=== PATIENT | male | born 1950 | race Caucasian/White ===

== ENCOUNTER 2021-08-26 12:46 | Inpatient (IN) | payer OTHER, SELFPAY ==
[~2021-08-26] VITALS: Ht 175.3 cm; Wt 62.6 kg
[~2021-08-26 12:46] MED LIST: DEXAMETHASONE SOD PHOSPHATE 4 MG/ML VIAL ONE; METOCLOPRAMIDE HCL 10 MG/2 ML VIAL ONE; MIDAZOLAM HCL 5 MG/ML VIAL (VERSED) IV ONE; ONDANSETRON HCL 4 MG/2 ML VIAL ONE; PROPOFOL 200MG/ 20ML VIAL (DIPRIVAN) IV ONE; SEVOFLURANE 15 MIN GAS INH ONE; SUCCINYLCHOLINE CHLORIDE 20 MG/ML(QUELICIN) ONE; fentaNYL CITRATE 250 MCG/5 ML AMP ONE
[2021-08-26] MEDS ORDERED: METO-442 PO (16:40)
[2021-08-26 17:54] LABS: BASOPHILS % (AUTO) 0.6 % (0.0-2.0); EOSINOPHILS # (AUTO) 0.1 K/uL (0.0-0.4); EOSINOPHILS % (AUTO) 0.9 % (0.0-4.0); HEMATOCRIT 45.1 % (36-54); HEMOGLOBIN 15.3 g/dL (14.0-18.0); LYMPHOCYTES # (AUTO) 1.9 K/uL (1.0-5.5); LYMPHOCYTES % (AUTO) 21.3 % (20.5-51.5); MEAN CORPUSCULAR HEMOGLOBIN 33 pg (27-31); MEAN CORPUSCULAR HGB CONC 34 % (32-36); MEAN CORPUSCULAR VOLUME 96 fL (79.0-98.0); MONOCYTES # (AUTO) 0.7 K/uL (0.0-1.0); MONOCYTES % (AUTO) 8.5 % (1.7-9.3); NEUTROPHILS % (AUTO) 68.7 % (40.0-70.0); PLATELET COUNT (AUTO) 195 K/uL (130-430); RED CELL DISTRIBUTION WIDTH 13.3 % (9.0-15.0); WHITE BLOOD COUNT (AUTO) 8.7 K/uL (4.8-10.8)
[2021-08-26 18:03] LABS: CREATININE 1.04 mg/dL (0.55-1.30); POTASSIUM 4.9 mmol/L (3.5-5.1)
[2021-08-26 18:09] LABS: ALBUMIN 4.3 g/dL (3.4-4.8); TOTAL BILIRUBIN 0.3 mg/dL (0.0-1.0)
[2021-08-26 18:14] VITALS: BP_SYST 145
[2021-08-26] MEDS ORDERED: HYDROmorphone 2 MG/ML VIAL ONE (18:35)
[2021-08-26] MEDS: HYDROmorphone 2 MG/ML VIAL IVP PRN ×3 (18:39→23:34)
[2021-08-26] MEDS: LR 1,000 ML IV SCH (18:48)
[2021-08-26 19:00] VITALS: BP_SYST 159
[2021-08-26 19:16] LABS: INR 1.1 (0.80-1.20); PROTHROMBIN TIME 11.1 SECS (9.5-12.5)
[2021-08-26 20:00] VITALS: BP_SYST 159
[2021-08-27 00:21] LABS: BILIRUBIN,URINE 2+ (NEGATIVE); BLOOD, URINE NEGATIVE (NEGATIVE); CLARITY/URINE CLEAR (CLEAR); COLOR,URINE YELLOW (YELLOW); GLUCOSE,URINE NEGATIVE (NEGATIVE); KETONES,URINE 2+ (NEGATIVE); LEUKOCYTE ESTERASE ,URINE NEGATIVE (NEGATIVE); NITRITE, URINE NEGATIVE (NEGATIVE); PH,URINE 5.5 (5.0-8.0); PROTEIN URINE NEGATIVE (NEGATIVE); UROBILINOGEN,URINE 0.2 (0.2-1.0)
[2021-08-27 00:24] VITALS: BP_SYST 138
[2021-08-27] MEDS: HYDROmorphone 2 MG/ML VIAL IVP PRN ×4 (01:46→07:44)
[2021-08-27 05:25] LABS: EOSINOPHILS # (AUTO) 0.2 K/uL (0.0-0.4); EOSINOPHILS % (AUTO) 2.2 % (0.0-4.0); HEMOGLOBIN 15.1 g/dL (14.0-18.0); LYMPHOCYTES # (AUTO) 1.8 K/uL (1.0-5.5); MONOCYTES # (AUTO) 0.7 K/uL (0.0-1.0); NEUTROPHILS # (AUTO) 4.8 K/uL (1.8-7.7); PLATELET COUNT (AUTO) 193 K/uL (130-430); RED CELL DISTRIBUTION WIDTH 13.2 % (9.0-15.0); WHITE BLOOD COUNT (AUTO) 7.6 K/uL (4.8-10.8)
[2021-08-27 05:33] LABS: INR 1.1 (0.80-1.20); PROTHROMBIN TIME 11.2 SECS (9.5-12.5)
[2021-08-27 05:34] LABS: BASOPHILS % (AUTO) 0.6 % (0.0-2.0); LYMPHOCYTES % (AUTO) 24.2 % (20.5-51.5); MEAN CORPUSCULAR HEMOGLOBIN 33 pg (27-31); MEAN CORPUSCULAR HGB CONC 34 % (32-36); MEAN CORPUSCULAR VOLUME 95 fL (79.0-98.0); MONOCYTES % (AUTO) 9.4 % (1.7-9.3); NEUTROPHILS % (AUTO) 63.6 % (40.0-70.0); RED BLOOD CELL COUNT(AUTO) 4.61 MIL/uL (4.2-6.2)
[2021-08-27] MEDS: LR 1,000 ML IV SCH (05:39)
[2021-08-27 05:41] LABS: ALBUMIN 4.1 g/dL (3.4-4.8); CALCIUM 9.4 mg/dL (8.4-11.0); CREATININE 0.87 mg/dL (0.55-1.30); POTASSIUM 4.2 mmol/L (3.5-5.1); TOTAL BILIRUBIN 0.5 mg/dL (0.0-1.0)
[2021-08-27 07:36] VITALS: BP_SYST 156
[2021-08-27] MEDS ORDERED: ACETAMINOPHEN 325 MG TABLET PO PRN (10:00)
[2021-08-27] MEDS ORDERED: ONDANSETRON 4 MG ODT TAB PO PRN (10:00)
[2021-08-27] MEDS ORDERED: NALOXONE HCL 0.4 MG/ML AMP (NARCAN) IVP PRN ×2 (10:00)
[2021-08-27] MEDS ORDERED: TEMAZEPAM 7.5 MG CAPSULE PO PRN (10:15)
[2021-08-27 12:42] VITALS: BP_SYST 122
[2021-08-27] MEDS: HYDROcodone/ACETAMIN 5-325 MG TAB (NORCO/ VICODIN) PO PRN ×3 (14:56→21:42)
[2021-08-27 15:17] VITALS: BP_SYST 144
[2021-08-27 20:05] VITALS: BP_SYST 144
[2021-08-28 00:41] VITALS: BP_SYST 145
[2021-08-28 08:22] VITALS: BP_SYST 150
[2021-08-28] MEDS: HYDROcodone/ACETAMIN 5-325 MG TAB (NORCO/ VICODIN) PO PRN (08:56)
[2021-08-28] MEDS ORDERED: METOPROLOL TARTRATE 50 MG TABLET PO SCH (09:00)
[2021-08-28 11:18] VITALS: BP_SYST 140
== END 2021-08-28 12:00 | disposition home or self-care (01) | DRG 561 ==
LOC: SMU 16:24
PROVIDERS: ADMIT Orthopaedic Surgery; ATTEND Orthopaedic Surgery
PROC: 0QS6XZZ Reposition Right Upper Femur, External Approach (ICD-10-PCS; principal; 2021-08-27 08:51)
DX: T84.020A Dislocation of internal right hip prosthesis, initial encounter (principal); Y83.8 Other surgical procedures as the cause of abnormal reaction of the patient, or of later complication, without mention of misadventure at the time of the procedure; Z20.822 Contact with and (suspected) exposure to COVID-19; Y92.89 Other specified places as the place of occurrence of the external cause; Z89.612 Acquired absence of left leg above knee
CPT/HCPCS: 36415; 71045; 72170-TC; 80053; 81003; 85025; 85610-TC; 85730-TC; 87081; 93005; J0330; J1100; J1170; J2250; J2405; J2704; J2765; J3010

== ENCOUNTER 2021-09-30 09:39 | Inpatient (IN) | payer OTHER ==
[2021-09-27 12:24] LABS: BASOPHILS # (AUTO) 0.1 K/uL (0.0-0.2); BASOPHILS % (AUTO) 0.9 % (0.0-2.0); EOSINOPHILS # (AUTO) 0.3 K/uL (0.0-0.4); EOSINOPHILS % (AUTO) 4.1 % (0.0-4.0); HEMATOCRIT 43.6 % (36-54); HEMOGLOBIN 14.8 g/dL (14.0-18.0); LYMPHOCYTES # (AUTO) 2.6 K/uL (1.0-5.5); LYMPHOCYTES % (AUTO) 33.2 % (20.5-51.5); MEAN CORPUSCULAR HEMOGLOBIN 33 pg (27-31); MEAN CORPUSCULAR HGB CONC 34 % (32-36); MEAN CORPUSCULAR VOLUME 96 fL (79.0-98.0); MONOCYTES # (AUTO) 0.5 K/uL (0.0-1.0); NEUTROPHILS # (AUTO) 4.3 K/uL (1.8-7.7); NEUTROPHILS % (AUTO) 54.8 % (40.0-70.0); PLATELET COUNT (AUTO) 233 K/uL (130-430); RED BLOOD CELL COUNT(AUTO) 4.56 MIL/uL (4.2-6.2); RED CELL DISTRIBUTION WIDTH 13.3 % (9.0-15.0); WHITE BLOOD COUNT (AUTO) 7.8 K/uL (4.8-10.8)
[2021-09-27 12:39] LABS: PROTHROMBIN TIME 10.8 SECS (9.5-12.5)
[2021-09-27 12:41] LABS: ALBUMIN 4.4 g/dL (3.4-4.8); CALCIUM 9.2 mg/dL (8.4-11.0); CREATININE 1.05 mg/dL (0.55-1.30); TOTAL BILIRUBIN 0.4 mg/dL (0.0-1.0)
[~2021-09-30] VITALS: Ht 175.3 cm; Wt 58.5 kg
[~2021-09-30 09:39] MED LIST changes: -DEXAMETHASONE SOD PHOSPHATE 4 MG/ML VIAL ONE; +METO-442 PO; -METOCLOPRAMIDE HCL 10 MG/2 ML VIAL ONE; -MIDAZOLAM HCL 5 MG/ML VIAL (VERSED) IV ONE; -ONDANSETRON HCL 4 MG/2 ML VIAL ONE; -PROPOFOL 200MG/ 20ML VIAL (DIPRIVAN) IV ONE; -SEVOFLURANE 15 MIN GAS INH ONE; -SUCCINYLCHOLINE CHLORIDE 20 MG/ML(QUELICIN) ONE; -fentaNYL CITRATE 250 MCG/5 ML AMP ONE
[2021-09-30 11:24] LABS: BILIRUBIN,URINE NEGATIVE (NEGATIVE); CLARITY/URINE CLEAR (CLEAR); COLOR,URINE YELLOW (YELLOW); GLUCOSE,URINE NEGATIVE (NEGATIVE); KETONES,URINE TRACE (NEGATIVE); LEUKOCYTE ESTERASE ,URINE NEGATIVE (NEGATIVE); NITRITE, URINE NEGATIVE (NEGATIVE); PROTEIN URINE TRACE (NEGATIVE); UROBILINOGEN,URINE 0.2 (0.2-1.0)
[2021-09-30 11:57] LABS: BLOOD, URINE TRACE (NEGATIVE)
[2021-09-30 12:15] LABS: BACTERIA,URINE FEW /HPF (None Seen); MUCUS,URINE 1+ /LPF (None Seen); RBC,URINE 0-3 /HPF (0-3); WBC,URINE 0-3 /HPF (0-3)
[2021-09-30] MEDS ORDERED: BUPIVACAINE LIPOSOME/PF 266 MG/20 ML VIAL INFIL ONE (12:59)
[2021-09-30] MEDS ORDERED: PANT40TA45 PO (13:01)
[2021-09-30] MEDS ORDERED: TAMS-11 PO (13:04)
[2021-09-30] MEDS ORDERED: TEMA30CA5 PO (13:05)
[2021-09-30] MEDS ORDERED: MORP15TA PO (13:11)
[2021-09-30] MEDS ORDERED: GLYC2TAB21 PO (13:13)
[2021-09-30] MEDS ORDERED: DICL75TA5 PO (13:14)
[2021-09-30] MEDS ORDERED: TOPXL100 PO (13:15)
[2021-09-30] MEDS ORDERED: AMLO5TAB4 PO (13:16)
[2021-09-30] MEDS ORDERED: SYN50 PO (13:17)
[2021-09-30] MEDS ORDERED: MIRT-91 PO (13:18)
[2021-09-30] MEDS ORDERED: PERC10 PO (13:19)
[2021-09-30] MEDS ORDERED: DIPHENHYDRAMINE INJ 50 MG/ML VIAL IVP PRN ×2 (14:15→16:00)
[2021-09-30] MEDS ORDERED: ONDANSETRON HCL 4 MG/2 ML VIAL IVP PRN (14:15)
[2021-09-30] MEDS ORDERED: NALOXONE HCL 0.4 MG/ML AMP (NARCAN) IVP PRN ×3 (14:15→16:00)
[2021-09-30] MEDS ORDERED: HYDROmorphone 1 MG/ML INJ. CARTRIDGE IVP PRN ×2 (14:15)
[2021-09-30] MEDS ORDERED: MEPERIDINE HCL/PF 25 MG/ML DISP.SYRIN IVP PRN (14:15)
[2021-09-30] MEDS ORDERED: METOCLOPRAMIDE HCL 10 MG/2 ML VIAL IVP PRN (14:15)
[2021-09-30] MEDS ORDERED: MIDAZOLAM HCL 2 MG/2 ML VIAL (VERSED) IVP PRN (14:15)
[2021-09-30] MEDS ORDERED: ACETAMINOPHEN I.V. 1000 MG 100 ML IV ONE (14:28)
[2021-09-30] MEDS ORDERED: CEFAZOLIN 2 GM IVPB PREMIX 50 ML IV ONE (15:28)
[2021-09-30] MEDS ORDERED: PROPOFOL 200MG/ 20ML VIAL (DIPRIVAN) IV ONE (15:28)
[2021-09-30] MEDS ORDERED: KETOROLAC TROMETHAMINE 30 MG VIAL ONE (15:28)
[2021-09-30] MEDS ORDERED: GENTAMICIN 80 mg/ NS 50 mL IVPB IV ONE (15:28)
[2021-09-30] MEDS ORDERED: ONDANSETRON HCL 4 MG/2 ML VIAL ONE (15:28)
[2021-09-30] MEDS ORDERED: MIDAZOLAM HCL 5 MG/ML VIAL (VERSED) IV ONE (15:28)
[2021-09-30] MEDS ORDERED: SUGAMMADEX SODIUM 200 MG/2 ML VIAL IV ONE (15:28)
[2021-09-30] MEDS ORDERED: NS IRRIG SOLN 1000 ML IR ONE (15:28)
[2021-09-30] MEDS ORDERED: DESFLURANE 15 MIN GAS INH ONE (15:28)
[2021-09-30] MEDS ORDERED: LIDOCAINE 1% 10 MG/ML, 20 ML MDV ONE (15:28)
[2021-09-30] MEDS ORDERED: ROCURONIUM BROMIDE 10 MG/ML (ZEMURON) ONE (15:28)
[2021-09-30] MEDS ORDERED: LR 1,000 ML IV.SOLN IV ONE (15:28)
[2021-09-30] MEDS ORDERED: MORPHINE SULFATE 10 MG/ML VIAL ONE (15:28)
[2021-09-30] MEDS ORDERED: DEXAMETHASONE SOD PHOSPHATE 4 MG/ML VIAL ONE (15:28)
[2021-09-30] MEDS ORDERED: ACETAMINOPHEN 325 MG TABLET PO PRN (16:00)
[2021-09-30] MEDS ORDERED: ONDANSETRON 4 MG ODT TAB PO PRN (16:00)
[2021-09-30] MEDS ORDERED: HYDROmorphone 2 MG/ML VIAL IVP PRN (16:00)
--- NOTE | 2021-09-30 16:30 | NUR ---
Patient transferred to unit in stable condition with surgical incision on right hip, abductor pillow, SCD on right leg, Marroquin catheter draining clear, yellow urine. Patient stable at this time with no complaint of pain.
[2021-09-30 16:45] VITALS: BP_SYST 139
[2021-09-30] MEDS: LR 1,000 ML IV SCH (16:58)
--- NOTE | 2021-09-30 17:00 | NUR ---
PRN medication given for itching. Patient stable at this time with , Chanell at bedside.
[2021-09-30 17:06] VITALS: BP_SYST 139
[2021-09-30 17:45] VITALS: BP_SYST 115
[2021-09-30 18:45] VITALS: BP_SYST 121
--- NOTE | 2021-09-30 18:45 | NUR ---
Patient eating dinner at this time with no distress noted and no complaint of pain. Patient stable since transfer from PACU.
[2021-09-30 20:00] VITALS: BP_SYST 108
--- NOTE | 2021-09-30 20:00 | NUR ---
PM ASSESSMENT; -Pt is a/ox4, resting bed. Pt stated pain level is 2/10 rt hip of surgical site. Iv site patent,no s/s any infiltration noted. IVF infusing well. Heavy saturated bright blood of rt surgical hip site, oozing through 1st surgical drsg and gown, dressing is still intact. Marroquin cath w/ gravity drains yellow urine output. Applied Abd pillow btw caren thighs entire time. Will notify Dr. Gaytan, regarding saturated 1st surgical site drsg of rt hip. Pt's condition stable. VSS. Call light w/in reach. Bed alarm in place. All safety measures in place, side rails x2. will continue to monitor pt.
[2021-09-30] MEDS: DOCUSATE SODIUM 100 MG CAPSULE PO SCH (20:45)
[2021-09-30] MEDS: HYDROcodone/ACETAMIN 5-325 MG TAB (NORCO/ VICODIN) PO PRN (20:46)
--- NOTE | 2021-09-30 20:52 | NUR ---
NOTES-INFORMED Fred ESCALONA REGARDING SATURATED BRIGHT BLOOD OF RT SURGICAL HIP SITE -Notified Dr. Gaytan regarding heavy saturated bright blood of rt surgical hip site, oozing through 1st surgical drsg and gown, dressing is still intact. No dressing change per md, just reinforce with multiple abd-pad per md. pt's conditon stable, vss. pt is c/o of aching pain,gave norco 2 tablets per pain mgtm. will continue to monitor pt.
[2021-09-30] MEDS: CEFAZOLIN 1 GM IVPB PREMIX 50 ML IV SCH (21:12)
[2021-09-30] MEDS ORDERED: TEMAZEPAM 15 MG CAPSULE ONE (22:46)
[2021-09-30] MEDS: TEMAZEPAM 15 MG CAPSULE PO SCH (22:58)
[2021-10-01 00:35] VITALS: BP_SYST 117
[2021-10-01] MEDS: LR 1,000 ML IV SCH ×3 (00:45→22:23)
[2021-10-01] MEDS: HYDROcodone/ACETAMIN 5-325 MG TAB (NORCO/ VICODIN) PO PRN ×4 (00:55→20:10)
--- NOTE | 2021-10-01 00:55 | NUR ---
PAIN MGMT -Pt is c/o burning aching pain of rt surgical hip site, gave [place] 2 tabs for pain mgmt. Surgical drsg site w/ abd pads dry and intact, no oozing of blood drainage noted. IVF infusing well no s/s any infiltration. Marroquin catheter w/ gravity drains yellow urine out. Call light w/in reach. All safety measures in place. Will reassess pain level w/in an hour and monitor pt.
--- NOTE | 2021-10-01 01:58 | NUR ---
ROUNDS; REASSESSMENT OF PAIN LEVEL -pt is asleep. no ss/ any pain,sob,or any acute distress noted. IVF infusing well. All safety measures in place. Call light w/in reach. Marroquin cath w/ gravity drains yellow urine output. Continue to monitor pt.
--- NOTE | 2021-10-01 04:21 | NUR ---
ROUNDS; -pt awoke upon making rounds. Pt aniceto any pain,sob,or any acute distress. IVF infusing well. All safety measures in place. Call light w/in reach. Marroquin cath w/ gravity drains yellow urine output. Continue to monitor pt.
[2021-10-01] MEDS: LEVOTHYROXINE SODIUM 0.05 MG TABLET PO SCH (06:04)
[2021-10-01] MEDS: CEFAZOLIN 1 GM IVPB PREMIX 50 ML IV SCH (06:04)
--- NOTE | 2021-10-01 06:07 | NUR ---
ROUNDS;Pain mgmt -Pt is c/o rt surgical hip pain 7/10 burning,gave [place] 2 tablets po for pain mgmt. Rt hip surgical drsg site is not oozing but still saturated old blood stained from previous time. IVF infusing well. All safety measures in place. Call light w/in reach. Marroquin cath w/ gravity drains yellow urine output. Continue to monitor pt.
--- NOTE | 2021-10-01 06:53 | NUR ---
CLOSING NOTES; -pt is resting in bed. Pt denies any pain,sob,or any acute. Rt hip surgical drsg saturated with old blood stained from last night. IV site patent drsg cdi. Jamison lower LE SCD applied. IVF infusing well. All safety measures in place. Call light w/in reach. Marroquin cath w/ gravity drains yellow urine output. ABd-pillow btwn thighs entire shift. Pt's condition stable. Will endorse to next nurse to cont care.
[2021-10-01 07:02] LABS: BASOPHILS % (AUTO) 0.1 % (0.0-2.0); EOSINOPHILS % (AUTO) 0.1 % (0.0-4.0); HEMATOCRIT 32.5 % (36-54); HEMOGLOBIN 11.1 g/dL (14.0-18.0); LYMPHOCYTES # (AUTO) 1.6 K/uL (1.0-5.5); MEAN CORPUSCULAR HEMOGLOBIN 33 pg (27-31); MEAN CORPUSCULAR HGB CONC 34 % (32-36); MEAN CORPUSCULAR VOLUME 96 fL (79.0-98.0); MONOCYTES # (AUTO) 0.9 K/uL (0.0-1.0); MONOCYTES % (AUTO) 8.5 % (1.7-9.3); NEUTROPHILS # (AUTO) 8.2 K/uL (1.8-7.7); NEUTROPHILS % (AUTO) 76.3 % (40.0-70.0); PLATELET COUNT (AUTO) 226 K/uL (130-430); RED CELL DISTRIBUTION WIDTH 13.3 % (9.0-15.0); WHITE BLOOD COUNT (AUTO) 10.8 K/uL (4.8-10.8)
[2021-10-01 07:07] LABS: CALCIUM 9.1 mg/dL (8.4-11.0); CREATININE 1.03 mg/dL (0.55-1.30); POTASSIUM 4.3 mmol/L (3.5-5.1)
--- NOTE | 2021-10-01 07:45 | NUR ---
am notes received pt in be eating breakfast.vitals stable. res even and unlabored.. iv site lfa #22. flushed well. no s/s of infiltration noted. poc discussed with pt. verbalized understanding. safety/fall precautions in place. call light within reach. encouraged to use call light for help.will conitnue to monitor
[2021-10-01 08:00] VITALS: BP_SYST 137
[2021-10-01] MEDS: DOCUSATE SODIUM 100 MG CAPSULE PO SCH ×2 (08:56→20:11)
[2021-10-01] MEDS: PANTOPRAZOLE SODIUM 40 MG TAB PO SCH (08:57)
[2021-10-01] MEDS: amLODIPine BESYLATE 5 MG TABLET PO SCH (08:58)
[2021-10-01] MEDS: METOPROLOL TARTRATE 50 MG TABLET PO SCH (08:59)
[2021-10-01] MEDS: TAMSULOSIN HCL 0.4 MG CAP PO SCH (09:03)
--- NOTE | 2021-10-01 09:15 | NUR ---
CALLED PT STATED LAST NIGHT DURING REPOSITION WHILE NURSE WAS DOING DRESSING ON LEFT HIP PT HEARD POP SOUND. CALLED DR REYNAGA AND INFORMED ABOUT THAT CONCERN. NEW ORDER RECEIVED FOR XRAY PELVIS.PT SCHEDULED TO HAVE LOVENOX THIS MORNING PT HAD BLEEDING FROM L HIP SURGERY SITE YESTERDAY. THIS MORNING MILD OLD RED DRAINAGE NOTED UNDERNEATH. OUTSIDE DRESSING CLEANCOVERED WITH ABD DOMINAL PAD. DR REYNAGA IS AWARE ABOUT BLEEDING.DR COLBERT GAVE ORDER TO OK TO GIVE LOVENOX THIS MORNING
[2021-10-01] MEDS: ENOXAPARIN SODIUM 40 MG/0.4 ML SYRINGE SUBCUT SCH (11:36)
[2021-10-01 13:05] VITALS: BP_SYST 121
--- NOTE | 2021-10-01 14:33 | NUR ---
C/O OF PAIN PT C/O OF LEFT HIP PAIN 09/25. MEDICATED WITH NORCO 5 MG PO ORDERED. NOT IN ACUTE DSITRESS. WILL CONINTUE TO MONITOR
[2021-10-01 16:53] VITALS: BP_SYST 124
--- NOTE | 2021-10-01 19:13 | NUR ---
CLOSING NOTES PT STABLE NOTIN ACUTE DISTRESS. IVF INFUSING WELL. SAFETY/FALL PRECAUTIONS IN PLACE. NEEDS ATTENDED.
[2021-10-01 20:10] VITALS: BP_SYST 150
--- NOTE | 2021-10-01 20:10 | NUR ---
PM ASSESSMENT; -Pt is a/ox4, resting bed. Pt stated burning pain level is 7/10 rt hip of surgical site. Iv site patent,no s/s any infiltration noted. LR @ 100m, IVF infusing well. Old blood stained of rt surgical hip site, multiple abd dressing is still intact. Marroquin cath w/ gravity drains yellow urine output. Applied Abd pillow btw caren thighs entire time. Call light w/in reach. Bed alarm in place. All safety measures in place, side rails x2. will reassess pain level w/in an hour and continue to monitor pt.
[2021-10-01] MEDS: MIRTAZAPINE 15 MG TABLET PO SCH (21:00)
[2021-10-01] MEDS: TEMAZEPAM 15 MG CAPSULE PO SCH (22:21)
--- NOTE | 2021-10-01 22:21 | NUR ---
ROUNDS; - Gave Restoril 30mg po instead 15mg po per pt's request for sleeping. Pt denies any pain,sob,or any acute distress. IVF infusing well. All safety measures in place. Call light w/in reach. Marroquin cath w/ gravity drains yellow urine output. Continue to monitor pt.
--- NOTE | 2021-10-02 00:37 | NUR ---
ROUNDS; -Pt awoke upon making rounds. Pt denies any pain,sob,or any acute distress. SCD rt lower ext in place. Abd pillow in btwn thighs entire time. IVF infusing well. All safety measures in place. Call light w/in reach. Marroquin cath w/ gravity drains yellow urine output. Continue to monitor pt.
[2021-10-02 01:20] VITALS: BP_SYST 138
--- NOTE | 2021-10-02 02:25 | NUR ---
ROUNDS; -Pt is asleep. NO s/s any pain,sob,or any acute distress noted. Abd pillow in btwn thighs entire time. IVF infusing well. All safety measures in place. Call light w/in reach. Marroquin cath w/ gravity drains yellow urine output. Continue to monitor pt.
--- NOTE | 2021-10-02 03:40 | NUR ---
ROUNDS; -Pt is asleep. NO s/s any pain,sob,or any acute distress noted. Pt's condition stable. Abd pillow in btwn thighs entire time. IVF infusing well. All safety measures in place. Call light w/in reach. Marroquin cath w/ gravity drains yellow urine output. Continue to monitor pt.
[2021-10-02] MEDS: HYDROcodone/ACETAMIN 5-325 MG TAB (NORCO/ VICODIN) PO PRN ×3 (06:05→22:27)
--- NOTE | 2021-10-02 06:05 | NUR ---
ROUNDS; Pain MGMT & REFUSED TO REMOVE RODRIGUEZ BEFORE BREAKFAST AND PT SESSION -Pt is c/o rt hip burning pain 12/25, gave [place] 2 tablets for pain mgmt. Also, pt is c/o little burning or tingling of rt foot, able to wiggle toes. Pt refused to remove Rodriguez catheter until breakfast or PT txmt. Abd pillow in btwn thighs entire time. IVF infusing well. All safety measures in place. Call light w/in reach. Rodriguez cath w/ gravity drains yellow urine output. Continue to monitor pt.
[2021-10-02] MEDS: LEVOTHYROXINE SODIUM 0.05 MG TABLET PO SCH (06:06)
--- NOTE | 2021-10-02 06:55 | NUR ---
CLOSING NOTES; -Pt awakes, laying in bed, talking on cellphone with family. Iv site patent w/ LR @ 100m, IVF infusing well. No active bleed noted, just Old blood stained of rt surgical hip site, multiple abd dressing is still intact. Marroquin cath w/ gravity drains yellow urine output. Applied Abd pillow btw caren thighs entire time. Call light w/in reach. Bed alarm in place. All safety measures in place, side rails x2. Will endorse to next nurse to discontinue after breakfast or after PT txmt per pt's request.
[2021-10-02 08:00] VITALS: BP_SYST 145
--- NOTE | 2021-10-02 08:00 | NUR ---
Morning notes: Pt A/Ox4 resting in bed with abduct pillow in place. No s/s of respiratory or cardiac distress, VVS. Marroquin in place draining yellow urine. Right hip dressing in place with minimal drainage on dressing. IV site is clean dry and intact, with ordered fluids running. Fall and safety precautions in place, call light within reach, will continue to monitor.
[2021-10-02] MEDS: DOCUSATE SODIUM 100 MG CAPSULE PO SCH ×2 (09:00→21:00)
[2021-10-02] MEDS: LR 1,000 ML IV SCH ×3 (10:10→22:34)
[2021-10-02] MEDS: ENOXAPARIN SODIUM 40 MG/0.4 ML SYRINGE SUBCUT SCH (10:11)
[2021-10-02] MEDS: TAMSULOSIN HCL 0.4 MG CAP PO SCH (10:12)
[2021-10-02] MEDS: amLODIPine BESYLATE 5 MG TABLET PO SCH (10:12)
[2021-10-02] MEDS: METOPROLOL TARTRATE 50 MG TABLET PO SCH (10:13)
[2021-10-02] MEDS: PANTOPRAZOLE SODIUM 40 MG TAB PO SCH (10:13)
[2021-10-02 12:00] VITALS: BP_SYST 150
[2021-10-02 16:00] VITALS: BP_SYST 143
--- NOTE | 2021-10-02 16:50 | NUR ---
RN note: Removed Marroquin, intact, no bleeding, will continue to monitor.
--- NOTE | 2021-10-02 18:50 | NUR ---
Closing notes: Pt A/Ox4 resting in bed with abduct pillow in place. No s/s of respiratory or cardiac distress, VVS. Marroquin in place draining yellow urine. Right hip dressing in place with minimal drainage on dressing. IV site is clean dry and intact, with ordered fluids running. Fall and safety precautions in place, call light within reach, will endorse to retail shift manager.
[2021-10-02] MEDS: MIRTAZAPINE 15 MG TABLET PO SCH (21:00)
[2021-10-02 23:00] VITALS: BP_SYST 112
[2021-10-03 08:00] VITALS: BP_SYST 106; BP_SYST 131
[2021-10-03] MEDS: LEVOTHYROXINE SODIUM 0.05 MG TABLET PO SCH (08:28)
[2021-10-03] MEDS: HYDROcodone/ACETAMIN 5-325 MG TAB (NORCO/ VICODIN) PO PRN ×2 (09:21→20:27)
[2021-10-03] MEDS: PANTOPRAZOLE SODIUM 40 MG TAB PO SCH (09:22)
[2021-10-03] MEDS: ENOXAPARIN SODIUM 40 MG/0.4 ML SYRINGE SUBCUT SCH (09:22)
[2021-10-03] MEDS: DOCUSATE SODIUM 100 MG CAPSULE PO SCH ×2 (09:22→20:25)
[2021-10-03] MEDS: amLODIPine BESYLATE 5 MG TABLET PO SCH (09:23)
[2021-10-03] MEDS: METOPROLOL TARTRATE 50 MG TABLET PO SCH (09:23)
[2021-10-03] MEDS: TAMSULOSIN HCL 0.4 MG CAP PO SCH (09:23)
[2021-10-03 11:28] VITALS: BP_SYST 133
[2021-10-03] MEDS: LR 1,000 ML IV SCH ×2 (13:12→21:52)
[2021-10-03 15:27] VITALS: BP_SYST 149
[2021-10-03] MEDS: MIRTAZAPINE 15 MG TABLET PO SCH (20:25)
[2021-10-03] MEDS: TEMAZEPAM 15 MG CAPSULE PO SCH (20:27)
[2021-10-04 00:38] VITALS: BP_SYST 139
[2021-10-04] MEDS: LEVOTHYROXINE SODIUM 0.05 MG TABLET PO SCH (07:48)
[2021-10-04] MEDS: METOPROLOL TARTRATE 50 MG TABLET PO SCH (09:10)
[2021-10-04] MEDS: DOCUSATE SODIUM 100 MG CAPSULE PO SCH (09:11)
[2021-10-04] MEDS: amLODIPine BESYLATE 5 MG TABLET PO SCH (09:11)
[2021-10-04] MEDS: TAMSULOSIN HCL 0.4 MG CAP PO SCH (09:11)
[2021-10-04] MEDS: PANTOPRAZOLE SODIUM 40 MG TAB PO SCH (09:11)
[2021-10-04] MEDS: ENOXAPARIN SODIUM 40 MG/0.4 ML SYRINGE SUBCUT SCH (09:13)
--- NOTE | 2021-10-04 12:27 | NUR ---
Dietitian Recommendations * Change diet to 2 gm Na d/t h/o HTN * Add Eliecer BID for surgical wound healing Please refer to Nutrition Assessment for details. Addendum: 10/04/21 at [address] Amended: Links added.
--- NOTE | 2021-10-04 15:00 | NUR ---
CM: PT ACCEPTED AT [facility], WILL BE ADMITTED TO [id number], SPOKE TO PT, AND HE IS IN AGREEMENT WITH POC, NURSE GLADIS WILSON AWARE, EST PICK-UP TIME [id number], PACKET ON THE FLOOR, NUMBER FOR REPORT .
[2021-10-04 16:11] VITALS: BP_SYST 129
--- NOTE | 2021-10-04 19:00 | NUR ---
A/OX4,RESTING IN BED,NO C/O PAIN OR DISCOMFORT,LEFT AKA,DRESSING IN R HIP REMAINS DRY AND INTACT,OUT OF BED WITH MODERATED ASSIST,AND HAS 1 FORM SASKIA IRAHETA IN [facility] CALLED AND SAID HE WILL BE HERE TO CHANGE DRESSING PRIOR PT D/C TO [facility],NURSE VIN IN [facility] CALLED AND GIVEN REPORT TO HER.
--- NOTE | 2021-10-04 19:53 | NUR ---
Follow up call made to [facility], dialed [phone], spoke to Yves, the new ETA is 2030.
--- NOTE | 2021-10-04 20:32 | NUR ---
Called and spoke with Dr. 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 hip dressing tomorrow at rehab.
--- NOTE | 2021-10-04 20:35 | NUR ---
D/C Patient Patient given medication reconciliation form and D/C instructions. Exit Care provided. Patient verbalized understanding. discussed with patient the results and treatment provided. Patient in stable condition, ID band removed. IV catheter R. hand intact. Patient educated on pain management. All belongings sent with patient including pt's crutches.
== END 2021-10-04 20:32 | DRG 468 ==
LOC: SMU 09:39
PROVIDERS: ADMIT Orthopaedic Surgery; ATTEND Orthopaedic Surgery
PROC: 0SPR0JZ Removal of Synthetic Substitute from Right Hip Joint, Femoral Surface, Open Approach (ICD-10-PCS; 2021-09-30)
PROC: 0SRR01Z Replacement of Right Hip Joint, Femoral Surface with Metal Synthetic Substitute, Open Approach (ICD-10-PCS; principal; 2021-09-30 10:15)
DX: T84.020A Dislocation of internal right hip prosthesis, initial encounter (principal); I10 Essential (primary) hypertension; Z20.822 Contact with and (suspected) exposure to COVID-19; Y83.1 Surgical operation with implant of artificial internal device as the cause of abnormal reaction of the patient, or of later complication, without mention of misadventure at the time of the procedure; Y92.89 Other specified places as the place of occurrence of the external cause; Z89.612 Acquired absence of left leg above knee
CPT/HCPCS: 36415; 72170-TC; 80048; 80053; 81000; 85025; 85610-TC; 85730-TC; 86886; 86900; 86901; 86920; 87070-TC; 87075-TC; 87081; 87635-QW; 88300; 97116-GP; 97163-GP; 97530-GP; C1776; C9290; J0131; J0690; J1100; J1200; J1580; J1650; J1885; J2001; J2250; J2270; J2405; J2704; J3465; J3490; J7120